=== PATIENT | female | born 1970 | race Caucasian/White ===

== ENCOUNTER 2018-12-29 05:40 | Day surgery (SDC) | payer OTHER ==
[~2018-12-29 05:40] MED LIST: AMILODIPINE PO; ATACAND32 MG PO; CARDURA XL4 MG PO; CLONIDINE HCL0.1 M1 PO; OMEGA 3 1,0001 EACH PO; OMEPRAZ PO; PROSAC PO; TRANDATE300 MG PO
[2018-12-29] MEDS ORDERED: PERCOCET 5-3251 EACH PO (08:56)
== END 2018-12-29 13:40 | disposition home or self-care (01) ==
LOC: CIR.AMB 05:40
DX: D35.1 Benign neoplasm of parathyroid gland (principal)

== ENCOUNTER 2023-01-01 07:43 | Outpatient (CLI) | payer OTHER ==
[~2023-01-01 07:43] MED LIST changes: +PERCOCET 5-3251 EACH PO
== END 2023-01-01 07:46 | disposition home or self-care (01) ==
LOC: SONOGRAMA 07:43
PROVIDERS: ATTEND Pathology Anatomic Pathology & Clinical Pathology
DX: D34 Benign neoplasm of thyroid gland (principal); E04.9 Nontoxic goiter, unspecified